=== PATIENT | female | born 1960 | race Caucasian/White ===

== ENCOUNTER → 2019-02-11 09:24 | Outpatient (CLI) | payer OTHER, SELFPAY ==
--- NOTE | 2019-02-11 09:39 | MM_ITS ---
PROCEDURE: MM DIG SCREENING MAMM BI W/CAD Patient Age:58Y CLINICAL INDICATION: SCREENING but no hormones but No new complaints. Previous stereotactic biopsy and cyst aspirations. Benign percutaneous most notable right breast COMPARISON: [facility] DIGITAL MAMM-SCREEN BILATERAL from 07/19/2010 DMSB DIGITAL MAMM-SCREEN BILATERAL from 07/26/2011 DMSB DIGITAL MAMM-SCREEN BILATERAL from 09/11/2012 DMDXUAVR DIG MAMM-DX UNI ADD VIEWS-RT from 09/25/2012 DMDBAV DIG MAMM-DX LINETTE ADD VIEWS from 04/17/2013 DMDXUR DIG MAMM-DX UNI-RT from 05/06/2013 DMSB DIG MAMM-SCREEN LINETTE from 04/05/2014 DMSB DIG MAMM-SCREEN LINETTE from 04/18/2015 DMSB DIG MAMM-SCREEN LINETTE W/CAD from 11/22/2016 TECHNIQUE: Standard CC and MLO images were obtained. R2 CAD reviewed. Additional axillary CC view right breast included FINDINGS: Moderate density breast tissue throughout both breasts, most evident towards upper-outer quadrant bilaterally Again note stable asymmetry pattern. No dominant nor new suspicious mass; no suspicious calcifications. Right breast. Again see asymmetric area of stable density at upper-outer quadrant, compatible with asymmetric fibroglandular elements. Same region of heterogeneous denser tissue pattern dates back to at least 2013, 2012; There are 3 or4 tiny metallic marker from previous percutaneous biopsies seen at the a superior right breast-unchanged since prior study. There has been overall slight progressive fatty replacement and slight regression of fibroglandular elements since those earlier studies in both breast since studies dating back to 2012 Left breast: No new findings of significant concern. Areas of density seen on today's MLO view similar to previous study from 2013. CC view unchanged IMPRESSION: Stable mammogram Bilateral follow-up 1 year recommended Moderate asymmetry again noted with previous percutaneous biopsies area of asymmetry of right breast right breast, but no new areas of significant concern. BI-RAD Category: 2 Benign Finding(s) FOLLOW-UP: 1YR 1 Year Follow-up (A letter has been sent to the patient regarding results of the study.) Dictated by: See Gonzales MD 02/14/2019 09:11 Electronically signed by See Gonzales MD in [place] 02/14/2019 09:11
== END ==
PROVIDERS: PCP Family Medicine; Visit Provider Obstetrics & Gynecology Gynecology
DX: Z12.31 Encounter for screening mammogram for malignant neoplasm of breast (principal)
CPT/HCPCS: 77067

== ENCOUNTER → 2020-12-16 15:12 | Outpatient (CLI) | payer OTHER, SELFPAY | PROVIDERS: PCP Family Medicine; Visit Provider Family Medicine | DX: Z20.822 Contact with and (suspected) exposure to COVID-19 (principal); U07.1 COVID-19 | CPT/HCPCS: U0003 ==